=== PATIENT | female | born 1975 | race African-American/Black ===

== ENCOUNTER 2018-05-02 19:39 | Emergency (ER) | payer OTHER ==
[~2018-05-02] VITALS: Ht 157.5 cm; Wt 78.5 kg
[~2018-05-02 19:39] MED LIST: FERROUS SULFAT325 M2 PO; ROBAXIN500 MG PO; VITAMIN C500 M4 PO
[2018-05-02 19:47] VITALS: Ht 157.5 cm; Wt 78.5 kg
[2018-05-02 20:43] LABS: BASOPHIL % 0.8 % (0-2); PLATELET COUNT 218 x10^3mcL (130-400); RED CELL DISTRIBUTION WIDTH 14.1 % (11.5-14.5)
[2018-05-02 20:49] LABS: CALCIUM 9.5 mg/dL (8.5-10.1); CARBON DIOXIDE 26.7 mmol/L (21-32); CHLORIDE SERUM 104 mmol/L (98-107); GFR1 > 60 mL/min; GLUCOSE SERUM 86 mg/dL (74-106); POTASSIUM SERUM 3.6 mmol/L (3.5-5.1); SODIUM SERUM 139 mmol/L (136-145)
[2018-05-02 20:53] LABS: ALBUMIN 3.8 g/dL (3.4-5.0); ALKALINE PHOSPHATASE 67 U/L (46-116); ALT/SGPT 23 U/L (14-59); AST/SGOT 25 U/L (15-37); BILIRUBIN TOTAL 0.26 mg/dL (0.20-1.00); TOTAL PROTEIN, SERUM 7.5 g/dL (6.4-8.2)
[2018-05-02 21:28] VITALS: BP 117/91
== END 2018-05-02 21:28 | disposition home or self-care (01) ==
LOC: ED 19:39
PROVIDERS: Emergency Medicine
DX: R07.89 Other chest pain (principal); J45.909 Unspecified asthma, uncomplicated; D64.9 Anemia, unspecified; E03.9 Hypothyroidism, unspecified
CPT/HCPCS: 36415

== ENCOUNTER 2018-05-21 13:01 | Emergency (ER) | payer OTHER ==
[~2018-05-21] VITALS: Ht 157.5 cm; Wt 78.5 kg
[2018-05-21 13:07] VITALS: Ht 157.5 cm; Wt 78.5 kg
[2018-05-21 14:45] LABS: CALCIUM 8.8 mg/dL (8.5-10.1); CARBON DIOXIDE 27.3 mmol/L (21-32); CHLORIDE SERUM 105 mmol/L (98-107); CREATININE SERUM 0.9 mg/dL (0.6-1.0); GFR1 > 60 mL/min; GLUCOSE SERUM 79 mg/dL (74-106); POTASSIUM SERUM 3.8 mmol/L (3.5-5.1); SODIUM SERUM 140 mmol/L (136-145)
[2018-05-21 14:47] LABS: BASOPHIL % 1.1 % (0-2); PLATELET COUNT 224 x10^3mcL (130-400); RED CELL DISTRIBUTION WIDTH 13.7 % (11.5-14.5)
[2018-05-21 14:58] LABS: ALBUMIN 3.5 g/dL (3.4-5.0); ALKALINE PHOSPHATASE 55 U/L (46-116); ALT/SGPT 21 U/L (14-59); AST/SGOT 23 U/L (15-37); BILIRUBIN TOTAL 0.28 mg/dL (0.20-1.00); T4(THYROXINE) 7.2 ug/dL (4.7-13.3); TOTAL PROTEIN, SERUM 7.2 g/dL (6.4-8.2)
[2018-05-21 15:49] VITALS: BP 125/84
== END 2018-05-21 15:49 | disposition home or self-care (01) ==
LOC: ED 13:01
PROVIDERS: Emergency Medicine
DX: R07.89 Other chest pain (principal); F32.9 Major depressive disorder, single episode, unspecified; I10 Essential (primary) hypertension; F43.9 Reaction to severe stress, unspecified; J45.909 Unspecified asthma, uncomplicated; E03.9 Hypothyroidism, unspecified; R42 Dizziness and giddiness; R20.2 Paresthesia of skin; Z88.0 Allergy status to penicillin
CPT/HCPCS: 36415; 85378; J1885; Q0092

== ENCOUNTER 2018-11-20 13:14 | Emergency (ER) | payer OTHER ==
[~2018-11-20] VITALS: Ht 157.5 cm; Wt 79.5 kg
[2018-11-20 14:09] VITALS: Ht 157.5 cm; Wt 79.5 kg
[2018-11-20 16:11] VITALS: BP 111/72
== END 2018-11-20 16:34 | disposition home or self-care (01) ==
LOC: ED 13:14
DX: M25.511 Pain in right shoulder (principal); E03.9 Hypothyroidism, unspecified; J45.901 Unspecified asthma with (acute) exacerbation; Z86.2 Personal history of diseases of the blood and blood-forming organs and certain disorders involving the immune mechanism; Z88.0 Allergy status to penicillin
CPT/HCPCS: Q0092

== ENCOUNTER 2019-10-23 06:02 | Emergency (ER) | payer OTHER ==
[~2019-10-23] VITALS: Ht 157.5 cm; Wt 77.7 kg
[2019-10-23 06:05] VITALS: Ht 157.5 cm; Wt 77.7 kg
[2019-10-23 08:01] VITALS: BP 107/72
== END 2019-10-23 08:01 | disposition home or self-care (01) ==
LOC: ED 06:02
DX: J18.9 Pneumonia, unspecified organism (principal); J45.909 Unspecified asthma, uncomplicated; E03.9 Hypothyroidism, unspecified; Z88.0 Allergy status to penicillin
CPT/HCPCS: 87804; J7512; Q0092

== ENCOUNTER 2020-01-20 20:32 | Inpatient (IN) | payer OTHER ==
[~2020-01-20] VITALS: Ht 157.5 cm; Wt 79.5 kg
[2020-01-20 21:13] LABS: PLATELET COUNT 208 x10^3mcL (130-400)
[2020-01-20 21:24] LABS: CALCIUM 9.3 mg/dL (8.5-10.1); CARBON DIOXIDE 28.1 mmol/L (21-32); CHLORIDE SERUM 106 mmol/L (98-107); CREATININE SERUM 0.9 mg/dL (0.6-1.0); GFR1 > 60 mL/min; GLUCOSE SERUM 99 mg/dL (74-106); POTASSIUM SERUM 3.5 mmol/L (3.5-5.1); SODIUM SERUM 141 mmol/L (136-145)
[2020-01-20] MEDS ORDERED: VENTOLIN H0.09 MG/A1 IH (22:42)
[2020-01-20] MEDS ORDERED: QVAR INH (22:43)
[2020-01-20] MEDS ORDERED: ZOLOFT25 MG PO (22:44)
[2020-01-21] LABS: CHOLESTEROL/HDL RATIO 4.2; MAGNESIUM 1.7 mg/dL (1.8-2.4); PHOSPHOROUS 3.9 mg/dL (2.5-4.9)
[2020-01-21 00:04] LABS: FREE T4 0.93 ng/dL (0.76-1.46); T3 TOTAL 1.08 ng/mL; T4(THYROXINE) 5.8 ug/dL (4.7-13.3)
[2020-01-21 00:16] VITALS: BP 104/70
[2020-01-21 00:19] VITALS: Ht 157.5 cm; Wt 79.5 kg
[2020-01-21 00:29] LABS: UA SPECIFIC GRAVITY 1.015 (1.005-1.035); microscopic required? YES; urine erythrocyte TRACE (NEGATIVE)
[2020-01-21 00:32] LABS: AMPHETAMINE QUAL UR NONE DETECTED (See below)
[2020-01-21 02:16] VITALS: BP 104/70
[2020-01-21 05:20] VITALS: BP 106/70
[2020-01-21 07:08] LABS: CALCIUM 8.9 mg/dL (8.5-10.1); CARBON DIOXIDE 23.9 mmol/L (21-32); CHLORIDE SERUM 107 mmol/L (98-107); CREATININE SERUM 0.9 mg/dL (0.6-1.0); GFR1 > 60 mL/min; GLUCOSE SERUM 87 mg/dL (74-106); PHOSPHOROUS 4.1 mg/dL (2.5-4.9); POTASSIUM SERUM 3.6 mmol/L (3.5-5.1); SODIUM SERUM 142 mmol/L (136-145)
[2020-01-21 07:21] LABS: BASOPHIL % 1.1 % (0-2); PLATELET COUNT 204 x10^3mcL (130-400)
[2020-01-21 07:37] LABS: RED CELL DISTRIBUTION WIDTH 15.1 % (11.5-14.5)
[2020-01-21 07:51] LABS: MAGNESIUM 1.9 mg/dL (1.8-2.4)
[2020-01-21 08:03] VITALS: BP 94/62
[2020-01-21 11:47] VITALS: BP 97/55
[2020-01-21 14:26] VITALS: BP 97/55
== END 2020-01-21 15:25 | disposition home or self-care (01) | DRG 756 ==
LOC: ED 20:32 → DU 23:16
PROVIDERS: Emergency Medicine; ADMIT Internal Medicine
DX: F41.9 Anxiety disorder, unspecified (principal); E83.42 Hypomagnesemia; J45.909 Unspecified asthma, uncomplicated; F32.9 Major depressive disorder, single episode, unspecified; D64.9 Anemia, unspecified; E03.9 Hypothyroidism, unspecified; E78.5 Hyperlipidemia, unspecified; Z68.32 Body mass index [BMI] 32.0-32.9, adult; Z79.51 Long term (current) use of inhaled steroids; Z88.0 Allergy status to penicillin; Z82.49 Family history of ischemic heart disease and other diseases of the circulatory system; Z83.3 Family history of diabetes mellitus
CPT/HCPCS: 83880; 84439; G0378; Q0092